=== PATIENT | female | born 1980 | race Caucasian/White ===

== ENCOUNTER 2016-09-16 00:17 | Emergency (ER) | payer OTHER ==
[~2016-09-16] VITALS: Ht 167.6 cm; Wt 64.0 kg
[2016-09-16] VITALS (9 sets, daily range): BP systolic 96–118; BP diastolic 45–60; PULSE 73–88; TEMP 36.7–37.1; O2SAT 99–100; Ht 167.6 cm; Wt 64.0 kg
[2016-09-16] MEDS ORDERED: PRENTAB26 PO (01:05)
[2016-09-16] MEDS ORDERED: ASPI-391 PO (01:05)
[2016-09-16] MEDS ORDERED: SODIUM CHLORIDE 0.9% 1000ML 2,000 ML IV STA (01:15)
[2016-09-16 01:26] LABS: HEMATOCRIT 24.4 % (37-47); MEAN CELL VOLUME 83.8 fL (80-100); MEAN CORPUSCULAR HEMOGLOBIN 29.9 pg (25-34); MEAN CORPUSCULAR HGB CONC 35.7 g/dl (32-36); MEAN PLATELET VOLUME 9.8 fL (7.4-10.4); PLATELET COUNT 206 K/uL (130-400); RED BLOOD COUNT 2.91 M/uL (4.2-5.4); WHITE BLOOD COUNT 14.49 K/uL (4.8-10.8)
[2016-09-16 01:35] LABS: ISTAT CREATININE 0.5 mg/dl (0.6-1.3); ISTAT HEMOGLOBIN 8.8 g/dl (12.0-16.0); ISTAT IONIZED CALCIUM 1.14 mmol/l (1.12-1.32)
[2016-09-16 01:40] LABS: PREG INTERNAL NEGATIVE QC NEG CLEAR BACKGROUND; PREG INTERNAL POSITIVE QC POS CONTROL LINE
[2016-09-16 01:40] LABS: INR 1.2 (0.9-1.1); PARTIAL THROMBOPLASTIN RATIO 1.2; PROTHROMBIN TIME (PATIENT) 13.4 SECONDS (9.0-12.0)
[2016-09-16 01:43] LABS: URINE APPEARANCE CLEAR (CLEAR); URINE BILIRUBIN NEG (NEG); URINE COLOR YELLOW; URINE EPITHELIAL CELL AUTO >30 /lpf (0-5); URINE NITRITE NEG (NEG); URINE PH 5.5 (4.5-7.5); URINE SPECIFIC GRAVITY 1.027 (1.000-1.030); UROBILINOGEN NEG (NEG)
[2016-09-16] MEDS ORDERED: ONDANSETRON INJ 2 MG/ML 2 ML VIAL IV STA (01:45)
[2016-09-16] MEDS ORDERED: MoRPHine SULFATE 10 MG/ML CARP/VIAL IV STA (01:45)
[2016-09-16 01:49] LABS: BUN/CREATININE RATIO 11.6 (10-20); CALCIUM 7.8 mg/dl (8.5-10.1); CREATININE 0.7 mg/dl (0.60-1.20); POTASSIUM 3.9 mmol/L (3.5-5.1)
[2016-09-16 01:51] LABS: ALB/GLOB RATIO 1.1 (0.9-2)
[2016-09-16 01:57] LABS: MANUAL MICROSCOPIC REQUIRED? NO; REVIEW REQ? YES
[2016-09-16] MEDS ORDERED: METHYLERGONOVINE MALEATE 0.2 MG/ML AMP IM STA (02:04)
[2016-09-16 02:09] LABS: BASO % 0.1 %; BASO ABS # 0.01 K/uL (0-0.2); COMPLETE YES; IG% 0.4 %; LYMPH % 6.8 %; LYMPH ABS # 0.99 K/uL (1.2-3.4); MONO % 4.1 %; NEUT % 88.6 %; POLYCHROMASIA 1+
[2016-09-16] MEDS ORDERED: MoRPHine SULFATE 4 MG/ML 1 ML CARP\\VIAL ONE (02:12)
[2016-09-16] MEDS ORDERED: MoRPHine SULFATE 2 MG/ML CARP ONE (02:12)
[2016-09-16 02:14] LABS: URINE MUCUS PRESENT (NONE PRSENT)
--- NOTE | 2016-09-16 02:23 | Medical Consult ---
Consultation Date of Consultation: Sep 16, 2016. Attending Physician: Dr Kingston Reason for Consultation: Vaginal bleeding History of Present Illness Patient is a 35yo at approximately 9-10w gestation who presented to the ER with heavy vaginal bleeding. She is from [facility], reports she was diagnosed with missed 3 weeks ago by ultrasound and elected to manage conservatively. She was hoping to pass the miscarriage on its own, rather than take medication or have surgery. She began to have cramping 2 nights ago, and started heavily bleeding within the past day. She was soaking 1 -2 pads per hour just prior to coming to ER. She felt dizzy and nauseated. Denies fever/chills/urinary complaints/bowel complaints. Gynecological history of 3 vaginal deliveries, one prior miscarriage (did not require D&E), and left ectopic 1 year ago with laparoscopic surgery. Past Medical/Surgical History Denies medical complaint/history. Surgical history: laparoscopy for ectopic 1 year ago. Family History noncontributory Social History Smoking Status: Never Smoker Allergies Coded Allergies: No Known Allergies (Unverified , 09/16/16) Home Medications Was taking excedrin for cramping associated with miscarriage Current Inpatient Medications Current Inpatient Medications Medications (Trade) Dose Ordered Sig/Alissa Route Start Time Stop Time Status Last Admin Dose Admin Sodium Chloride 2,000 ml @ 999 mls/hr Q2H1M STAT IV 09/16/16 01:15 09/16/16 03:15 09/16/16 01:15 999 MLS/HR Review of Systems Constitutional: + weakness, No fever, No chills Eyes: No problem reported ENT: No problem reported Respiratory: No problem reported Cardiovascular: No problem reported Abdomen: No problem reported Musculoskeletal: No problem reported Genitourinary - Female: + vaginal bleeding, + Neurologic: No problem reported Psychiatric: No problem reported Endocrine: No problem reported Hematologic / Lymphatic: No problem reported Integumentary: No problem reported Allergic / Immunologic: No problem reported Physical Exam Date Time Temp Pulse Resp B/P (MAP) Pulse Ox O2 Delivery O2 Flow Rate FiO2 09/16/16 02:02 112/63 09/16/16 01:47 105 16 09/16/16 01:31 108/65 09/16/16 01:24 78 09/16/16 01:22 98 Room Air 7/5/17 01:01 108/79 09/16/16 00:24 37.0 82 20 97/64 100 Room Air General Appearance: WD/WN, + mild distress, + pertinent finding (pale) Head: normocephalic, atraumatic Neck: supple Respiratory/Chest: no respiratory distress Cardiovascular: regular rate, rhythm Abdomen/GI: non tender, soft, no organomegaly Genitourinary - Female: + pertinent finding (Upon initial exam, vaginal vault filled with clots. Upon removal of all clots, cervix dilated approximately 1- 2cm. Vagina otherwise normal.) Back: normal range of motion Extremities/Musculoskelatal: normal range of motion Neurologic/Psych: alert, normal mood/affect, oriented x 3 Skin: + pallor Laboratory Results Last 24 Hours Test 09/16/16 00:00 09/16/16 01:14 09/16/16 01:22 Urine Color YELLOW Urine Appearance CLEAR Urine pH 5.5 Urine Specific [place] 1.027 Urine Protein TRACE Urine Glucose (UA) NEG Urine Ketones TRACE Urine Occult Blood NEG Urine Nitrite NEG Urine Bilirubin NEG Urine Urobilinogen NEG Urine Leukocyte Esterase NEG Urine Test POS White Blood Count 14.49 K/uL Red Blood Count 2.91 M/uL Hemoglobin 8.7 g/dL Hematocrit 24.4 % Mean Corpuscular Volume 83.8 fL Mean Corpuscular Hemoglobin 29.9 pg Mean Corpuscular Hemoglobin Concent 35.7 g/dl Platelet Count 206 K/uL Mean Platelet Volume 9.8 fL Neutrophils (%) (Auto) 88.6 % Lymphocytes (%) (Auto) 6.8 % Monocytes (%) (Auto) 4.1 % Eosinophils (%) (Auto) 0.0 % Basophils (%) (Auto) 0.1 % Neutrophils # (Auto) 12.84 K/uL Lymphocytes # (Auto) 0.99 K/uL Monocytes # (Auto) 0.59 K/uL Eosinophils # (Auto) 0.00 K/uL Basophils # (Auto) 0.01 K/uL RDW Standard Deviation 42.9 fL RDW Coefficient of Variation 14.0 % Immature Granulocyte % (Auto) 0.4 % Immature Granulocyte # (Auto) 0.06 K/uL Polychromasia 1+ Prothrombin Time 13.4 SECONDS Prothromb Time International Ratio 1.2 Activated Partial Thromboplast Time 30.0 SECONDS Partial Thromboplastin Ratio 1.2 Sodium Level 141 mmol/L Potassium Level 3.9 mmol/L Chloride Level 110 mmol/L Carbon Dioxide Level 24 mmol/L Anion Gap 7.0 mmol/L 20.0 mmol/L Blood Urea Nitrogen 8 mg/dl Creatinine 0.70 mg/dl Est Creatinine Clear Calc Drug Dose 102.9 ml/min Estimated GFR () 128.3 Estimated GFR (Non- 110.7 BUN/Creatinine Ratio 11.6 Random Glucose 163 mg/dl Calcium Level 7.8 mg/dl Total Bilirubin 0.5 mg/dl Aspartate Amino Transf (AST/SGOT) 12 U/L Alanine Aminotransferase (ALT/SGPT) 23 U/L Alkaline Phosphatase 60 U/L Total Protein 5.8 gm/dl Albumin 3.1 gm/dl Globulin 2.7 gm/dl Albumin/Globulin Ratio 1.1 Bedside Hemoglobin 8.8 g/dl Bedside Hematocrit 26 % Bedside Sodium 139 mEq/L Bedside Potassium 3.9 mEq/L Bedside Chloride 103 mEq/L Bedside Total CO2 21 mEq/l Bedside Blood Urea Nitrogen 7 mg/dl Bedside Creatinine 0.5 mg/dl Bedside Glucose (other) 166 mg/dl Bedside Ionized Calcium (Dhaval) 1.14 mmol/l Assessment & Plan 35yo with incomplete . Ultrasound performed by railroad firer at bedside showed large amount of clots in cervix/vagina with minimal debris in the uterus. With ultrasound guidance, I gently cleared clots/debris from the vagina and cervix with ring forceps and wall suction. After removal of clots/products of conception, cervix was visible and approx 1-2cm dilated with scant bleeding. Products of conception sent to pathology for gross evaluation. Will give methergine 0.2mg x 1 dose IM to aid in hemostasis. Patient tolerated procedure well, and reported no pain after removal of products. 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 Recommend motrin/ tylenol if needed for cramping, iron 325mg 2x daily. If worsening bleeding/ fever/chills, return to ER immediately.
--- NOTE | 2016-09-16 03:28 | EMERGENCY ROOM VISIT NOTE ---
History Report prepared by [place]: Flako Bond Under the Supervision of: Dr. Lopez Kingston D.O. First contact with patient: 00:49 Chief Complaint: VAGINAL BLEEDING Stated Complaint: VAGINAL BLEEDING History of Present Illness The patient is a 35 year old female who presents to the Emergency Room with complaints of persistent vaginal bleeding that began last night. The patient is currently 9-10 weeks and states that she is actively having a miscarriage. She first started experiencing contractions at 1999 on Wednesday, 31 hours prior to this visit. The patient is still currently bleeding and passing clots and is nauseated. She did visit with her OBGYN and had an Ultrasound performed. This US did not show an intrauterine . P:3 A:3. She denies headache, change in vision, fevers, chest pain, shortness of breath, diarrhea, and melena. Source of History: patient Onset: One night TIME BUYER Position: other (Genitourinary) Quality: other (Vag Bleed) Associated Symptoms: + nausea Note: Contractions Review of Systems See HPI for pertinent positives & negatives. A total of 10 systems reviewed and were otherwise negative. Past Medical & Surgical Medical Problems: (1) Spontaneous Family History Diabetes mellitus Hypertension Kidney disease Kidney stones Social History Smoking Status: Never Smoker Drug Use: none Marital Status: Housing Status: lives with family Occupation Status: employed Current/Historical Medications Scheduled Multivit/Min/Iron/Fol Ac/Pren ( Vitamin), 1 TAB PO DAILY Scheduled PRN [id number] (Excedrin Extra Strength), 1 DOSE PO DIRECTED PRN for Pain Allergies Coded Allergies: No Known Allergies (Unverified , 09/16/16) Physical Exam Vital Signs Date Time Temp Pulse Resp B/P (MAP) Pulse Ox O2 Delivery O2 Flow Rate FiO2 09/16/16 06:44 36.9 78 15 97/54 100 09/16/16 06:14 36.7 88 17 105/45 100 09/16/16 05:59 36.9 82 16 109/58 100 09/16/16 05:11 84 09/16/16 04:31 92/60 09/16/16 04:29 77 16 95/52 100 09/16/16 04:21 76 14 09/16/16 04:06 80 16 09/16/16 04:01 105/56 09/16/16 03:51 78 15 09/16/16 03:36 96 14 09/16/16 03:31 102/58 09/16/16 03:12 81 17 09/16/16 03:01 96/62 09/16/16 02:42 83 17 09/16/16 02:37 79 17 09/16/16 02:31 101/57 09/16/16 02:07 85 16 09/16/16 02:02 112/63 09/16/16 01:47 105 16 09/16/16 01:31 108/65 09/16/16 01:24 78 09/16/16 01:22 98 Room Air 09/16/16 01:01 108/79 09/16/16 00:24 37.0 82 20 97/64 100 Room Air Physical Exam GENERAL: alert, ill-appearing, pale, and in moderate distress. EYE EXAM: normal conjunctiva LUNGS: Clear to auscultation. Normal chest wall mechanics HEART: no murmurs, S1 normal and S2 normal ABDOMEN: abdomen soft, tender to palpitation in lower abdomen, normo-active bowel sounds, no masses, no rebound or guarding. BACK: Back is symmetrical on inspection and there is no deformity, no midline tenderness, no CVA tenderness. SKIN: no rashes and no bruising UPPER EXTREMITIES: upper extremities are grossly normal. LOWER EXTREMITIES: No pitting edema. NEURO EXAM: Normal sensorium, cranial nerves II-XII grossly intact, normal speech, no gross weakness of arms, no gross weakness of legs. PELVIC: Normal external genitalia with blood dripping from the vagina. There was a fair amount of clot removed from the vault, with continued bleeding. Unable to visualize cervix. Medical Decision & Procedures ER Provider Diagnostic Interpretation: Radiology results as stated below per my review and the radiologist's interpretation: US OB 1st TRIMESTER: PRE-PROCEDURE -large amount of echogenic, avascular soft tissue within the cervix, likely representing clot, measuring 9.8 x 5.4 x 7.0 cm. No definite intrauterine gestational sac identified. The endometrium within the uterus appears arabella, measuring 5 mm in thickness. Right ovary measures 3.3 x 3.3 x 1.9 cm. Corpus luteum noted within the right ovary. Unilocular 1.9 x 2.0 x 1.3 cm right paraovarian cyst. Left ovary measures 2.7 x 2.1 x 3.0 cm. Normal color Doppler flow to both ovaries. No free fluid. POST-PROCEDURE - no significant residual clot expanding the cervix status post clot removal. No free fluid. Radiologist Edward Draper M.D. Laboratory Results 09/16/16 01:14 Red Blood Count 2.91, Mean Corpuscular Volume 83.8, Mean Corpuscular Hemoglobin 29.9, Mean Corpuscular Hemoglobin Concent 35.7, Mean Platelet Volume 9.8, Neutrophils (%) (Auto) 88.6, Lymphocytes (%) (Auto) 6.8, Monocytes (%) (Auto) 4.1, Eosinophils (%) (Auto) 0.0, Basophils (%) (Auto) 0.1, Neutrophils # (Auto) 12.84, Lymphocytes # (Auto) 0.99, Monocytes # (Auto) 0.59, Eosinophils # (Auto) 0.00, Basophils # (Auto) 0.01 09/16/16 04:45 09/16/16 01:14 Test 09/16/16 00:00 09/16/16 01:14 09/16/16 01:22 Urine Color YELLOW Urine Appearance CLEAR (CLEAR) Urine pH 5.5 (4.5-7.5) Urine Specific [place] 1.027 (1.000-1.030) Urine Protein TRACE (NEG) Urine Glucose (UA) NEG (NEG) Urine Ketones TRACE (NEG) Urine Occult Blood NEG (NEG) Urine Nitrite NEG (NEG) Urine Bilirubin NEG (NEG) Urine Urobilinogen NEG (NEG) Urine Leukocyte Esterase NEG (NEG) Urine WBC (Auto) 1-5 /hpf (0-5) Urine RBC (Auto) 0-4 /hpf (0-4) Urine Hyaline Casts (Auto) 5-10 /lpf (0-5) Urine Epithelial Cells (Auto) >30 /lpf (0-5) Urine Bacteria (Auto) NEG (NEG) Urine Renal Epithelial Cells /lpf (0-5) Urine Pathogenic Casts /lpf (0) Urine Mucus PRESENT (NONE PRSENT) Urine Test POS (NEG) White Blood Count 14.49 K/uL (4.8-10.8) Red Blood Count 2.91 M/uL (4.2-5.4) Hemoglobin 8.7 g/dL (12.0-16.0) Hematocrit 24.4 % (37-47) Mean Corpuscular Volume 83.8 fL (80-100) Mean Corpuscular Hemoglobin 29.9 pg (25-34) Mean Corpuscular Hemoglobin Concent 35.7 g/dl (32-36) Platelet Count 206 K/uL (130-400) Mean Platelet Volume 9.8 fL (7.4-10.4) Neutrophils (%) (Auto) 88.6 % Lymphocytes (%) (Auto) 6.8 % Monocytes (%) (Auto) 4.1 % Eosinophils (%) (Auto) 0.0 % Basophils (%) (Auto) 0.1 % Neutrophils # (Auto) 12.84 K/uL (1.4-6.5) Lymphocytes # (Auto) 0.99 K/uL (1.2-3.4) Monocytes # (Auto) 0.59 K/uL (0.11-0.59) Eosinophils # (Auto) 0.00 K/uL (0-0.5) Basophils # (Auto) 0.01 K/uL (0-0.2) RDW Standard Deviation 42.9 fL (36.4-46.3) RDW Coefficient of Variation 14.0 % (11.5-14.5) Immature Granulocyte % (Auto) 0.4 % Immature Granulocyte # (Auto) 0.06 K/uL (0.00-0.02) Polychromasia 1+ Prothrombin Time 13.4 SECONDS (9.0-12.0) Prothromb Time International Ratio 1.2 (0.9-1.1) Activated Partial Thromboplast Time 30.0 SECONDS (21.0-31.0) Partial Thromboplastin Ratio 1.2 Est Creatinine Clear Calc Drug Dose 102.9 ml/min Estimated GFR () 128.3 Estimated GFR (Non- 110.7 BUN/Creatinine Ratio 11.6 (10-20) Calcium Level 7.8 mg/dl (8.5-10.1) Total Bilirubin 0.5 mg/dl (0.2-1) Aspartate Amino Transf (AST/SGOT) 12 U/L (15-37) Alanine Aminotransferase (ALT/SGPT) 23 U/L (12-78) Alkaline Phosphatase 60 U/L (45-117) Total Protein 5.8 gm/dl (6.4-8.2) Albumin 3.1 gm/dl (3.4-5.0) Globulin 2.7 gm/dl (2.5-4.0) Albumin/Globulin Ratio 1.1 (0.9-2) Bedside Hemoglobin 8.8 g/dl (12.0-16.0) Bedside Hematocrit 26 % (37-47) Bedside Sodium 139 mEq/L (135-144) Bedside Potassium 3.9 mEq/L (3.3-5.0) Bedside Chloride 103 mEq/L (101-112) Bedside Total CO2 21 mEq/l (24-31) Anion Gap 20.0 mmol/L (16-25) Bedside Blood Urea Nitrogen 7 mg/dl (7-18) Bedside Creatinine 0.5 mg/dl (0.6-1.3) Bedside Glucose (other) 166 mg/dl (70-99) Bedside Ionized Calcium (Dhaval) 1.14 mmol/l (1.12-1.32) Laboratory results per my review. Medications Administered Medications (Trade) Dose Ordered Sig/Alissa Route Start Time Stop Time Status Last Admin Dose Admin Sodium Chloride 2,000 ml @ 999 mls/hr Q2H1M STAT IV 09/16/16 01:15 09/16/16 03:15 DC 09/16/16 01:15 999 MLS/HR Methylergonovine Maleate (Methergine Inj) 0.2 mg NOW STAT IM 09/16/16 02:04 09/16/16 02:06 DC 09/16/16 02:22 0.2 MG Sodium Chloride 500 ml @ 999 mls/hr Q31M STAT IV 09/16/16 04:41 09/16/16 05:11 DC 09/16/16 04:41 999 MLS/HR ED Course ED COURSE: Vital signs were reviewed and showed hypotensive vitals The patients medical record was reviewed The above diagnostic studies were performed and reviewed. ED treatments and interventions as stated above. 0053: The patient was evaluated in room B2. A complete history and physical examination was performed. 0108: I discussed the case with Dr. Rob BLAIR at this time. She will come to evaluate the patient in the department. 0115: Ordered Sodium Chloride 2000 mL @ 999 mL/hr IV. 0145: Ordered Zofran 4 mg IV, Morphine Sulfate 6 mg IV. 0118: Ultra Sound is coming to bedside at this time. I checked on the patient. She has 3 different IV's established. 0129: The beside Ultra [facility] shows cervix filled with large amount of clot. The patient's hemoglobin is currently 8.8. 0131: I discussed the case with Dr. Whitten once again at this time. She is on her way to see the patient now. 0146: Dr. Whitten is now removing the clot. 0157: Dr. Whitten has evacuated all of the clot at this time. Pre and post uterine US showed no retained clot present. Bleeding has stopped at this time and she is giving her Metrodin. Dr. Whitten recommends watching for an hour and can be discharged to follow up with OBGYN. 0204: Ordered Methergine 0.2 mg IM. 0212: Ordered Morphine Sulfate 2 mg IV. 0521: I have obtained the patient's consent to give a blood transfusion at this time. 0555: I discussed the transfusion with the patient at this time. She has never had a brain bleed, no recent trauma, no recent hematuria, no bloody stools. She has never been on blood thinners. 0612: I discussed the case with Dr. Whitten at this time. She states that we can transfuse the patient in the department and have her follow up. 0617: I updated the patient at this time. She is currently receiving the blood transfusion. She has no questions or complaints at this time. 0630: This patient will be signed out to Dr. Eduardo at change of shift. Medical Decision Differential diagnosis includes etiologies such as ectopic , dysfunction uterine bleeding, bleeding dyscrasia, trauma, infection, as well as others were entertained. Patient is a 35-year-old female who presents the ER for persistent vaginal bleeding that has been present for the past 24 hours. Patient notes that she is about 9010 weeks and has had a previous ultrasound and a beta-HCG. Upon arrival she is pale and ill-appearing. She was hypotensive with systolic pressures in the 90s. Bedside exam showed a large amount of vaginal bleeding. Bedside ultrasound showed a large amount of clot in the uterus. I-STAT H&H was 8.8. SUPERVISOR RESPIRATORY was immediately paged and I discussed case with her following my initial pelvic. She presented bedside and removed a clot at bedside. A post procedural ultrasound was performed and was unremarkable. Vaginal bleeding completely stopped. She was given Methergine. Patient rested comfortably in the ER. Vitals remained stable. She was discharged follow into hours of observation per OB to follow up with gynecology as an outpatient. Prior to discharge pads was checked which were changed about an hour ago and she had scant blood present. Upon discharge she stood up and became very dizzy/ lightheaded. Systolic blood pressures were checked and they dropped into the 90s. Repeat hemoglobin was obtained and it dropped down to 6.4. Repeat pelvic showed no bleeding. Transfusion of 2 PRBCs was ordered. Rediscussed with OB/ PROJECT MANAGEMENT IT SPECIALIST and they recommended transfusion and follow-up as an outpatient. Blood consent was obtained. Patient was signed out to Dr. Eduardo awaiting transfusion and discharged to follow-up with her tumbling instructor this following a complete evacuation of her cervix/vagina, 2 units of PRBCs and no additional vaginal bleeding following 4 hours. Consults Time Called: 99 Consulting Physician: Dr. Maria Dolores BLAIR Returned Call: 0108 I discussed the case with Dr. Maria Dolores BLAIR at this time. She will come to evaluate the patient in the department. Multiple consults between Dr. Whitten and myself are outlined in the ED Course. Impression Primary Impression: Spontaneous Additional Impressions: Anemia Abnormal vaginal bleeding Symptomatic anemia Critical Care I have personally spent 35 minutes of critical care time in the direct management of this patient. This includes bedside care, interpretation of diagnostic studies, and testing, discussion with consultants, patient, and family members, and other required patient management activities. This 35 minutes is in excess of all separately billable procedures. Scribe Attestation The scribe's documentation has been prepared under my direction and personally reviewed by me in its entirety. I confirm that the note above accurately reflects all work, treatment, procedures, and medical decision making performed by me. Departure Information Dispostion Still a Patient (Signed out to Dr. Eduardo ) Referrals No Doctor, Assigned (PCP) Forms HOME CARE DOCUMENTATION FORM, IMPORTANT VISIT INFORMATION, WORK / SCHOOL INSTRUCTIONS Patient Instructions My [facility] Additional Instructions Please follow up with your OB on . Any worsening of your symptoms, please return to the ED immediately. This includes dizziness, lightheadedness, chest pain, shortness breath, recurrence of her bleeding, fevers greater than 100.4, or any other concerning signs or symptoms from your standpoint. Please take Motrin or Tylenol as needed for pain. Please take iron tabs for the next 2-3 months because of your anemia from your vaginal bleeding. Problem Qualifiers Additional Impressions: Anemia Anemia type: unspecified type Qualified Codes: D64.9 - Anemia, unspecified
[2016-09-16] MEDS ORDERED: SODIUM CHLORIDE 0.9% 500ML 500 ML IV STA (04:41)
[2016-09-16 05:08] LABS: HEMATOCRIT 19.3 % (37-47)
--- NOTE | 2016-09-16 07:23 | DIAGNOSTIC IMAGING REPORT ---
ULTRASOUND OF THE PELVIS CLINICAL HISTORY: 35-year-old female with vaginal bleeding, reported D&C in the ER. COMPARISON STUDY: None. TECHNIQUE: Real-time, grayscale, and color flow sonography of the pelvis is performed both transabdominally and endovaginally. Images are reviewed in the transverse and longitudinal planes. FINDINGS: Uterus: The lower uterine and cervical portion of the canal contains a large amount of heterogeneously hyperechoic avascular material measuring 9.8 x 5.4 x 7.0 cm. The endometrium at the fundus appears normal measuring 5 mm in thickness. No normal gestational sac is visualized. The uterus is otherwise normal. After the reported dilatation and curettage, postprocedural imaging was obtained demonstrating evacuation of the previously described avascular material. Right adnexa: Right ovary contains a corpus luteal cyst. The right ovary measures 3.3 x 1.9 x 3.0 cm, which is normal. The ovarian parenchyma demonstrates normal color Doppler flow and spectral Doppler waveforms. A 1.9 x 2.0 x 1.3 cm anechoic cyst immediately adjacent to the right ovary may either represent an exophytic follicle or simple paraovarian cyst. Left adnexa: Left ovary normal-appearing with normal color Doppler flow within the ovarian parenchyma. Normal arterial and venous waveforms also apparent. Left ovary measures 2.7 x 2.1 x 3.0 cm, which is normal. Pelvis: No free fluid. IMPRESSION: No normal gestational sac. Avascular material in the lower uterine segment and cervix, consistent with products of conception and blood products, evacuated at the conclusion of the examination. Electronically signed by: Nikko Chi 09/16/2016 7:21 AM Dictated Date/Time: 09/16/2016 7:10 AM
--- NOTE | 2016-09-16 08:53 | EMERGENCY ROOM VISIT NOTE ---
ED Visit Note First contact with patient: 06:51 I assumed care at the change of shift. The patient was receiving 2 units of packed red blood cells for her anemia. The patient has received the-2 units, she feels well, her vital signs are stable. There has been no further vaginal bleeding. She does have an appointment to see OB this week. She was encouraged to return for worsening symptoms. She is being discharged home.
== END 2016-09-16 09:07 | disposition home or self-care (01) ==
LOC: EDBD 00:17 → C.EDB 00:19 → EDBD 00:19 → C.EDB 09:07
DX: O03.9 Complete or unspecified spontaneous abortion without complication (principal); N93.9 Abnormal uterine and vaginal bleeding, unspecified; D64.9 Anemia, unspecified; Z83.3 Family history of diabetes mellitus; Z82.49 Family history of ischemic heart disease and other diseases of the circulatory system; Z84.1 Family history of disorders of kidney and ureter